=== PATIENT | male | born 1965 | race African-American/Black ===

== ENCOUNTER 2016-09-21 02:41 | Emergency (ER) | payer MEDICARE ==
[~2016-09-21] VITALS: Ht 172.7 cm; Wt 133.8 kg
[~2016-09-21 02:41] MED LIST: TRAZ100T15 PO
[2016-09-21 02:42] VITALS: BP 165/109
[2016-09-21] MEDS ORDERED: ARIP10TA13 PO (02:50)
[2016-09-21] MEDS ORDERED: TRAZ100T15 PO (02:50)
[2016-09-21] MEDS ORDERED: OLAN10TA3 PO (02:51)
[2016-09-21 03:45] LABS: ASPARTATE AMINO TRANSFERASE 38 U/L (15-37); BLOOD UREA NITROGEN 13 mg/dL (7-18)
[2016-09-21 04:02] LABS: ACETAMINOPHEN < 2 mcg/mL (10-30)
== END 2016-09-21 04:43 | disposition home or self-care (01) ==
LOC: ED 04:00
DX: F32.0 Major depressive disorder, single episode, mild (principal); F17.200 Nicotine dependence, unspecified, uncomplicated
CPT/HCPCS: 36415; 80053; 80307; 80329; 85025; 99284; G0480

== ENCOUNTER 2016-11-22 23:00 | Emergency (ER) | payer MEDICARE ==
[~2016-11-22] VITALS: Ht 172.7 cm; Wt 130.0 kg
[~2016-11-22 23:00] MED LIST changes: +ARIP10TA13 PO; +OLAN10TA3 PO
[2016-11-22 23:51] LABS: BLOOD UREA NITROGEN 18 mg/dL (7-18)
[2016-11-22 23:52] LABS: ACETAMINOPHEN < 2 mcg/mL (10-30)
[2016-11-23 00:01] LABS: DIFF TOTAL CELLS COUNTED 100 CELL DIFF
[2016-11-23 00:06] LABS: VERIFY COUNTS? YES
[2016-11-23 00:30] VITALS: BP 151/81
[2016-11-23] MEDS ORDERED: QUETIAPINE 25MG TABLET PO ONE (01:00)
== END 2016-11-23 01:17 | disposition home or self-care (01) ==
LOC: ED 23:59
DX: F32.9 Major depressive disorder, single episode, unspecified (principal); F41.9 Anxiety disorder, unspecified
CPT/HCPCS: 36415; 80048; 80307; 80329; 82040; 85025; 99284; G0480

== ENCOUNTER 2017-01-20 16:30 | Observation (INO) | payer MEDICARE, MEDICAID ==
[~2017-01-20] VITALS: Ht 172.7 cm; Wt 135.0 kg
[~2017-01-20 16:30] MED LIST changes: -ARIP10TA13 PO; +ARIP10TA33 PO
[2017-01-20 17:12] LABS: DAU SCREEN DISCLAIMER
[2017-01-20 17:20] LABS: HEMATOCRIT 38.5 % (39.2-51.8); HEMOGLOBIN 12.7 g/dL (13.7-18.0); WHITE BLOOD COUNT 8.6 x10^3/uL (3.4-10)
[2017-01-20] MEDS ORDERED: LORazepam 1MG TABLET PO ONE (17:30)
[2017-01-20 17:32] LABS: ACETAMINOPHEN < 2 mcg/mL (10-30); ASPARTATE AMINO TRANSFERASE 21 U/L (15-37); BLOOD UREA NITROGEN 16 mg/dL (7-18)
[2017-01-20] MEDS ORDERED: ONDANSETRON ODT 4 MG PO PRN (20:00)
[2017-01-20] MEDS ORDERED: ACETAMINOPHEN 325 MG TABLET PO PRN (20:00)
[2017-01-20] MEDS ORDERED: POLYETHYLENE GLYCOL 17 GM PACKET PO PRN (20:00)
[2017-01-20] MEDS ORDERED: BISACODYL 10 MG SUPP PR PRN (20:00)
[2017-01-21] MEDS: NICOTINE 7 MG/24 HR PATCH.TD24 TD SCH ×2 (00:35→22:30)
[2017-01-21] MEDS: TRAZODONE 100MG TABLET PO SCH ×2 (00:36→22:30)
[2017-01-21] MEDS ORDERED: ZIPRASIDONE 20 MG INJ IM ONE ×2 (06:39→07:00)
[2017-01-21] MEDS: OLANZAPINE 10 MG TABLET PO SCH (13:54)
[2017-01-21] MEDS: ARIPIPRAZOLE 10 MG TABLET PO SCH (13:55)
[2017-01-21] MEDS: SENNA/DOCUSATE TABLET PO SCH (13:55)
[2017-01-21] MEDS ORDERED: HEPARIN 5,000 UNITS/ML, 1ML ONE (22:25)
[2017-01-21] MEDS ORDERED: NICOTINE 14MG/24 HR PATCH.TD24 ONE (22:26)
[2017-01-21] MEDS: HEPARIN 5,000 UNITS/ML, 1ML SQ SCH (22:30)
[2017-01-22] MEDS: SENNA/DOCUSATE TABLET PO SCH (08:49)
[2017-01-22] MEDS: OLANZAPINE 10 MG TABLET PO SCH (08:55)
[2017-01-22] MEDS: ARIPIPRAZOLE 10 MG TABLET PO SCH (08:56)
[2017-01-22] MEDS: HEPARIN 5,000 UNITS/ML, 1ML SQ SCH ×3 (10:30→23:03)
[2017-01-22] MEDS ORDERED: HEPARIN 5,000 UNITS/ML, 1ML ONE (22:54)
[2017-01-22] MEDS: NICOTINE 7 MG/24 HR PATCH.TD24 TD SCH (23:03)
[2017-01-22] MEDS: TRAZODONE 100MG TABLET PO SCH (23:03)
[2017-01-23] MEDS: HEPARIN 5,000 UNITS/ML, 1ML SQ SCH ×3 (02:30→18:31)
[2017-01-23] MEDS ORDERED: HEPARIN 5,000 UNITS/ML, 1ML ONE ×2 (08:47→18:27)
[2017-01-23] MEDS: SENNA/DOCUSATE TABLET PO SCH (09:16)
[2017-01-23] MEDS: ARIPIPRAZOLE 10 MG TABLET PO SCH (09:16)
[2017-01-23] MEDS: OLANZAPINE 10 MG TABLET PO SCH (09:17)
[2017-01-23] MEDS: TRAZODONE 100MG TABLET PO SCH (21:58)
[2017-01-23] MEDS: NICOTINE 7 MG/24 HR PATCH.TD24 TD SCH (22:00)
[2017-01-23] MEDS: GUAIFENESIN/DM 100-10MG, 5ML UDC PO PRN (22:01)
[2017-01-23 22:09] VITALS: BP 126/76
[2017-01-24] MEDS: HEPARIN 5,000 UNITS/ML, 1ML SQ SCH ×3 (05:26→21:05)
[2017-01-24] MEDS: GUAIFENESIN/DM 100-10MG, 5ML UDC PO PRN (05:26)
[2017-01-24 07:23] VITALS: BP 121/86
[2017-01-24] MEDS: ARIPIPRAZOLE 10 MG TABLET PO SCH (07:38)
[2017-01-24] MEDS: OLANZAPINE 10 MG TABLET PO SCH (07:38)
[2017-01-24] MEDS: SENNA/DOCUSATE TABLET PO SCH (07:40)
[2017-01-24 20:30] VITALS: BP 120/74
[2017-01-24] MEDS: NICOTINE 7 MG/24 HR PATCH.TD24 TD SCH (20:53)
[2017-01-24] MEDS: TRAZODONE 100MG TABLET PO SCH (20:53)
[2017-01-24] MEDS ORDERED: HEPARIN 5,000 UNITS/ML, 1ML SQ SCH (22:00)
[2017-01-25] MEDS: HEPARIN 5,000 UNITS/ML, 1ML SQ SCH (06:00)
[2017-01-25 07:00] VITALS: BP 120/82
[2017-01-25] MEDS: ARIPIPRAZOLE 10 MG TABLET PO SCH (07:43)
[2017-01-25] MEDS: OLANZAPINE 10 MG TABLET PO SCH (07:44)
[2017-01-25] MEDS: SENNA/DOCUSATE TABLET PO SCH (07:45)
[2017-01-25] MEDS ORDERED: ENOXAPARIN 40 MG/0.4 ML SQ SCH (18:00)
[2017-01-25 19:20] VITALS: BP 94/56
[2017-01-25 20:52] VITALS: BP 120/72
[2017-01-25] MEDS: TRAZODONE 100MG TABLET PO SCH (20:53)
[2017-01-25] MEDS: NICOTINE 7 MG/24 HR PATCH.TD24 TD SCH (20:53)
[2017-01-26 08:00] VITALS: BP 110/71
[2017-01-26] MEDS: ARIPIPRAZOLE 10 MG TABLET PO SCH (09:05)
[2017-01-26] MEDS: OLANZAPINE 10 MG TABLET PO SCH (09:06)
[2017-01-26] MEDS: SENNA/DOCUSATE TABLET PO SCH (09:11)
[2017-01-26] MEDS: GUAIFENESIN/DM 100-10MG, 5ML UDC PO PRN ×2 (09:21→17:39)
[2017-01-26] MEDS: ENOXAPARIN 40 MG/0.4 ML SQ SCH (17:39)
[2017-01-26 19:48] VITALS: BP 105/71
[2017-01-26] MEDS: NICOTINE 7 MG/24 HR PATCH.TD24 TD SCH (20:38)
[2017-01-26] MEDS: TRAZODONE 100MG TABLET PO SCH (20:38)
[2017-01-27] MEDS: OLANZAPINE 10 MG TABLET PO SCH (08:41)
[2017-01-27] MEDS: ARIPIPRAZOLE 10 MG TABLET PO SCH (08:42)
[2017-01-27 08:52] VITALS: BP 133/95
[2017-01-27] MEDS ORDERED: SENNA/DOCUSATE TABLET PO SCH (09:00)
[2017-01-27] MEDS: ENOXAPARIN 40 MG/0.4 ML SQ SCH (18:08)
[2017-01-27 19:28] VITALS: BP 113/68
[2017-01-27] MEDS: TRAZODONE 100MG TABLET PO SCH (20:50)
[2017-01-27] MEDS: NICOTINE 7 MG/24 HR PATCH.TD24 TD SCH (20:51)
[2017-01-28 08:08] VITALS: BP 111/73
[2017-01-28] MEDS: ARIPIPRAZOLE 10 MG TABLET PO SCH (08:28)
[2017-01-28] MEDS: OLANZAPINE 10 MG TABLET PO SCH (08:29)
[2017-01-28] MEDS: SENNA/DOCUSATE TABLET PO SCH (08:30)
[2017-01-28] MEDS: ENOXAPARIN 40 MG/0.4 ML SQ SCH (18:23)
[2017-01-28 19:02] VITALS: BP 137/80
[2017-01-28] MEDS: TRAZODONE 100MG TABLET PO SCH (20:38)
[2017-01-28] MEDS: NICOTINE 7 MG/24 HR PATCH.TD24 TD SCH (20:39)
[2017-01-29 07:59] VITALS: BP 128/86
[2017-01-29] MEDS: ARIPIPRAZOLE 10 MG TABLET PO SCH (08:33)
[2017-01-29] MEDS: OLANZAPINE 10 MG TABLET PO SCH (08:33)
[2017-01-29] MEDS: SENNA/DOCUSATE TABLET PO SCH (08:41)
[2017-01-29] MEDS: ENOXAPARIN 40 MG/0.4 ML SQ SCH (18:12)
[2017-01-29 19:29] VITALS: BP 149/95
[2017-01-29] MEDS: TRAZODONE 100MG TABLET PO SCH (23:00)
[2017-01-29] MEDS: NICOTINE 7 MG/24 HR PATCH.TD24 TD SCH (23:00)
[2017-01-30] MEDS: TRAZODONE 100MG TABLET PO SCH ×2 (00:42→20:37)
[2017-01-30] MEDS: SENNA/DOCUSATE TABLET PO SCH (09:00)
[2017-01-30] MEDS: OLANZAPINE 10 MG TABLET PO SCH (09:17)
[2017-01-30] MEDS: ARIPIPRAZOLE 10 MG TABLET PO SCH (09:18)
[2017-01-30] MEDS: ENOXAPARIN 40 MG/0.4 ML SQ SCH (17:51)
[2017-01-30 19:41] VITALS: BP 139/84
[2017-01-30] MEDS: NICOTINE 7 MG/24 HR PATCH.TD24 TD SCH (23:00)
[2017-01-31 08:18] VITALS: BP 147/111
[2017-01-31] MEDS: ARIPIPRAZOLE 10 MG TABLET PO SCH (09:17)
[2017-01-31] MEDS: SENNA/DOCUSATE TABLET PO SCH (09:18)
[2017-01-31] MEDS: OLANZAPINE 10 MG TABLET PO SCH (09:18)
[2017-01-31] MEDS: NICOTINE 7 MG/24 HR PATCH.TD24 TD SCH (09:26)
[2017-01-31 09:28] VITALS: BP 133/88
[2017-01-31] MEDS ORDERED: NICO1PAT10 TD (11:48)
== END 2017-01-31 12:56 ==
LOC: ED 16:45 → EDIP 18:46 → INTOOBSV 18:46 → 3E 01-23 21:58
PROVIDERS: ADMIT Internal Medicine; ATTEND Internal Medicine
DX: R45.851 Suicidal ideations (principal); D64.9 Anemia, unspecified; E44.1 Mild protein-calorie malnutrition; E66.01 Morbid (severe) obesity due to excess calories; F14.90 Cocaine use, unspecified, uncomplicated; F33.2 Major depressive disorder, recurrent severe without psychotic features; F41.9 Anxiety disorder, unspecified; F17.210 Nicotine dependence, cigarettes, uncomplicated; Z83.3 Family history of diabetes mellitus; Z91.14 Patient's other noncompliance with medication regimen
CPT/HCPCS: 36415; 71020; 80053; 80307; 80329; 85025; 96372; 99285; G0378; J1644; J1650; J3486; G0479; G0480

== ENCOUNTER 2017-02-06 18:22 | Observation (INO) | payer MEDICARE, MEDICAID ==
[~2017-02-06] VITALS: Ht 172.7 cm; Wt 135.0 kg
[~2017-02-06 18:22] MED LIST changes: +NICO-485 TD
[2017-02-06 19:04] LABS: HEMATOCRIT 37.5 % (39.2-51.8); HEMOGLOBIN 12.7 g/dL (13.7-18.0); WHITE BLOOD COUNT 7.7 x10^3/uL (3.4-10)
[2017-02-06 19:13] LABS: BLOOD UREA NITROGEN 16 mg/dL (7-18)
[2017-02-06 19:17] LABS: ACETAMINOPHEN < 2 mcg/mL (10-30)
[2017-02-06 19:19] LABS: IS PT STATUS REG ER OR PRE ER? YES
[2017-02-06] MEDS ORDERED: ZIPRASIDONE 20MG CAPSULE ONE (21:31)
[2017-02-06] MEDS: ZIPRASIDONE 20MG CAPSULE PO SCH (21:35)
[2017-02-06] MEDS ORDERED: ACETAMINOPHEN 325 MG TABLET PO PRN (22:00)
[2017-02-06] MEDS ORDERED: DOCUSATE 100 MG CAPSULE PO PRN (22:00)
[2017-02-06] MEDS ORDERED: ONDANSETRON ODT 4 MG PO PRN (22:00)
[2017-02-06 22:27] LABS: DAU SCREEN DISCLAIMER
[2017-02-07 00:22] VITALS: BP 154/106
[2017-02-07 07:30] VITALS: BP 118/74
[2017-02-07] MEDS: ZIPRASIDONE 20MG CAPSULE PO SCH (08:29)
[2017-02-07] MEDS ORDERED: OLANZAPINE 10 MG TABLET PO SCH (09:00)
[2017-02-07] MEDS ORDERED: ARIPIPRAZOLE 10 MG TABLET PO SCH (09:00)
[2017-02-07] MEDS: PSEUDOEPHEDRINE 30 MG TABLET PO PRN (18:15)
[2017-02-07 19:41] VITALS: BP 133/85
[2017-02-07] MEDS ORDERED: TRAZODONE 100MG TABLET PO SCH (21:00)
[2017-02-08 08:12] VITALS: BP 130/78
[2017-02-08] MEDS ORDERED: ZIPRASIDONE 20 MG INJ IM PRN (11:00)
[2017-02-08] MEDS ORDERED: ZIPRASIDONE 20MG CAPSULE ONE (11:02)
[2017-02-08] MEDS: ZIPRASIDONE 20MG CAPSULE PO SCH ×2 (11:07→20:10)
[2017-02-08] MEDS: ARIPIPRAZOLE 10 MG TABLET PO SCH (11:07)
[2017-02-08] MEDS ORDERED: BUPR300T49 PO (11:33)
[2017-02-08] MEDS ORDERED: BUSP5TAB2 PO (11:34)
[2017-02-08 19:45] VITALS: BP 134/62
[2017-02-08] MEDS: TRAZODONE 100MG TABLET PO SCH (20:10)
[2017-02-08] MEDS: BUSPIRONE 5 MG TABLET PO SCH (20:11)
[2017-02-09] MEDS: PSEUDOEPHEDRINE 30 MG TABLET PO PRN (02:19)
[2017-02-09 08:00] VITALS: BP 121/71
[2017-02-09] MEDS: BUSPIRONE 5 MG TABLET PO SCH ×2 (08:33→20:34)
[2017-02-09] MEDS: ARIPIPRAZOLE 10 MG TABLET PO SCH (08:33)
[2017-02-09] MEDS: BUPROPION 100 MG TABLET PO SCH (08:34)
[2017-02-09] MEDS: ZIPRASIDONE 20MG CAPSULE PO SCH ×2 (08:34→20:35)
[2017-02-09 19:18] VITALS: BP 110/70
[2017-02-09] MEDS: TRAZODONE 100MG TABLET PO SCH (20:35)
[2017-02-10] MEDS: BUPROPION 100 MG TABLET PO SCH (08:23)
[2017-02-10] MEDS: BUSPIRONE 5 MG TABLET PO SCH ×2 (08:24→20:52)
[2017-02-10] MEDS: ZIPRASIDONE 20MG CAPSULE PO SCH ×2 (08:24→20:52)
[2017-02-10] MEDS: ARIPIPRAZOLE 10 MG TABLET PO SCH (08:24)
[2017-02-10 08:34] VITALS: BP 147/99
[2017-02-10] MEDS ORDERED: DOCUSATE 100 MG CAPSULE PO PRN (20:00)
[2017-02-10] MEDS ORDERED: ZIPRASIDONE 20 MG INJ IM PRN (20:00)
[2017-02-10] MEDS ORDERED: ONDANSETRON ODT 4 MG PO PRN (20:00)
[2017-02-10] MEDS ORDERED: ACETAMINOPHEN 325 MG TABLET PO PRN (20:00)
[2017-02-10 20:35] VITALS: BP 105/67
[2017-02-10] MEDS: TRAZODONE 100MG TABLET PO SCH (20:52)
[2017-02-11] MEDS: ZIPRASIDONE 20MG CAPSULE PO SCH (08:40)
[2017-02-11] MEDS: BUSPIRONE 5 MG TABLET PO SCH (08:40)
[2017-02-11] MEDS: BUPROPION 100 MG TABLET PO SCH (08:40)
[2017-02-11] MEDS: ARIPIPRAZOLE 10 MG TABLET PO SCH (08:40)
[2017-02-11 08:43] VITALS: BP 109/65
== END 2017-02-11 14:56 ==
LOC: ED 18:34 → EDIP 21:10 → INTOOBSV 21:10 → SUATTDRO 21:39 → 3E 02-07 00:20
PROVIDERS: ADMIT Hospitalist; ATTEND Family Medicine
DX: R45.851 Suicidal ideations (principal); F32.9 Major depressive disorder, single episode, unspecified; F41.9 Anxiety disorder, unspecified; E66.01 Morbid (severe) obesity due to excess calories; Z68.42 Body mass index [BMI] 45.0-49.9, adult
CPT/HCPCS: 36415; 80048; 80307; 80329; 82040; 84484; 85025; 93005; 99285; G0378; G0479; G0480

== ENCOUNTER 2018-12-03 03:41 | Emergency (ER) | payer MEDICARE, MEDICAID ==
[~2018-12-03] VITALS: Ht 172.7 cm; Wt 131.0 kg
[~2018-12-03 03:41] MED LIST changes: +BUPR300T49 PO; +BUSP5TAB2 PO; +TRAZ-137 PO; -TRAZ100T15 PO
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
--- NOTE | 2018-12-03 04:24 | NUR ---
pt in hospital gown. one bag belongings labeled and placed in clothing closet. pt given urine cup for specimen collection. room secured with bilat garage doors down. sitter at door.
--- NOTE | 2018-12-03 04:43 | NUR ---
pt refusing labs. erp aware
--- NOTE | 2018-12-03 05:38 | NUR ---
SITTER AT DOOR.
--- NOTE | 2018-12-03 05:38 | NUR ---
PT PROVIDED URINE SAMPLE. URINE WALKED TO LAB. PT GIVEN SOCKS. LAB CALLED PT STATED AGREEABLE TO LABS BEING DRAWN AT THIS TIME.
[2018-12-03 05:59] LABS: AMPHETAMINE SCREEN, URINE Positive (Negative); BARBITURATE SCREEN, URINE Negative (Negative); BENZODIAZEPINE SCREEN, URINE Negative (Negative); CANNABINOID SCREEN, URINE Negative (Negative); COCAINE SCREEN, URINE Negative (Negative); METHADONE SCREEN, URINE Negative (Negative); OPIATE SCREEN, URINE Negative (Negative)
[2018-12-03 06:19] LABS: BASOPHILS # (AUTO) 0.03 x10^3/uL (0-0.1); BASOPHILS % (AUTO) 1 % (0-1); EOSINOPHILS # (AUTO) 0.14 x10^3/uL (0-0.4); EOSINOPHILS % (AUTO) 2 % (1-7); LYMPHOCYTES # (AUTO) 2.84 x10^3/uL (1-3.4); LYMPHOCYTES % (AUTO) 40 % (22-44); MD NO; MEAN CORPUSCULAR HEMOGLOBIN 30.6 pg (27.5-34.5); MEAN CORPUSCULAR HGB CONC 32.7 g/dL (33.2-36.2); MEAN CORPUSCULAR VOLUME 93.6 fL (81-97); MEAN PLATELET VOLUME 7.7 fL (7.4-10.4); MONOCYTES # (AUTO) 0.47 x10^3/uL (0.2-0.8); MONOCYTES % (AUTO) 7 % (2-9); NEUTROPHILS # (AUTO) 3.63 x10^3/uL (1.8-6.8); NEUTROPHILS % (AUTO) 51 % (42-75); PLATELET COUNT 246 x10^3/uL (130-400); RED BLOOD COUNT 4.34 x10^6/uL (4.38-5.82); RED CELL DISTRIBUTION WIDTH 16.1 % (9.4-14.8)
--- NOTE | 2018-12-03 06:22 | NUR ---
TELEPSYCH CONSULT INITIATED. PT DOC BOT PLACED IN PT ROOM #[id number]. BREAKFAST ORDERED FOR PT. LAB ABLE TO DRAW BLOOD.
[2018-12-03 06:23] LABS: ALANINE AMINOTRANSFERASE 34 U/L (12-78); ALBUMIN 3.2 g/dL (3.4-5.0); ANION GAP 8 mmol/L (5-15); CALCIUM 8.2 mg/dL (8.5-10.1); CHLORIDE 112 mmol/L (98-107)
[2018-12-03 06:25] LABS: SALICYLATE LEVEL < 1.7 mg/dL (2.8-20.0)
[2018-12-03 06:26] LABS: ALKALINE PHOSPHATASE 77 U/L (45-117); BILIRUBIN,TOTAL 0.7 mg/dL (0.2-1.0); CREATININE 0.84 mg/dL (0.7-1.3); TOTAL PROTEIN 6.6 g/dL (6.4-8.2)
--- NOTE | 2018-12-03 06:47 | NUR ---
REPORT TO CHER Amanda
--- NOTE | 2018-12-03 07:08 | NUR ---
PT SLEEPING. CARE ASSUMED.
--- NOTE | 2018-12-03 07:22 | NUR ---
REPORT GIVEN TO DR ALY.
--- NOTE | 2018-12-03 07:33 | NUR ---
TELE PSYCH CONSULT IN PROGRESS
--- NOTE | 2018-12-03 08:00 | NUR ---
PT REFUSED TO PROVIDE A URINE SAMPLE. PT GETS AGITATED WHEN TALKED TO.
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
[2018-12-03] MEDS ORDERED: LORazepam 1MG TABLET ONE (08:22)
[2018-12-03] MEDS ORDERED: LORazepam 1MG TABLET PO ONE (08:30)
--- NOTE | 2018-12-03 09:15 | NUR ---
PT REPORTS HE STILL HAS SELF HARM THOUGHTS BUT IS NOT HAVING ANY THOUGHTS OF HARMING OTHERS AT THIS TIME. PT COOPERATIVE AND ALLOWS RN TO TAKE VS. NAD. VSS.
--- NOTE | 2018-12-03 09:45 | NUR ---
PT DENIES ANY NEEDS AT THIS TIME.
[2018-12-03 09:46] VITALS: BP 143/75
--- NOTE | 2018-12-03 09:46 | NUR ---
THROUGHPUT: PACKET FAXED TO [facility], [place], [facility], [facility], [address] [facility].
--- NOTE | 2018-12-03 10:11 | NUR ---
THROUGHPUT: REFUSED BY JUAN PABLO Addendum: 12/03/18 at 1012 by JOHN THROUGHPUT: REFUSED BY JUAN PABLO PER OSEI
--- NOTE | 2018-12-03 10:40 | NUR ---
Patient is resting comfortably in bed. Pt states, "I'm really sleepy, I just want to take a nap". NAD.
[2018-12-03] MEDS ORDERED: FOLIC ACID 1 MG TABLET PO SCH (11:30)
[2018-12-03] MEDS ORDERED: ACETAMINOPHEN 325 MG TABLET PO PRN (11:30)
[2018-12-03] MEDS ORDERED: THIAMINE 100MG TABLET PO SCH (11:30)
[2018-12-03] MEDS ORDERED: ONDANSETRON ODT 4 MG PO PRN (11:30)
[2018-12-03] MEDS ORDERED: MULTIVITAMIN 1 TABLET PO SCH (11:30)
--- NOTE | 2018-12-03 11:50 | NUR ---
PT ASLEEP IN ROOM BUT ROUSES EASILY WHEN SPOKEN TO. PT INFORMED OF PLAN TO TRANSFER TO FLOOR. NAD.
--- NOTE | 2018-12-03 12:15 | NUR ---
CM ROUNDED ON PT
--- NOTE | 2018-12-03 12:21 | NUR ---
REPORT GIVEN TO CARO ON 3E
[2018-12-03] MEDS ORDERED: ENOXAPARIN 40 MG/0.4 ML SQ SCH (12:30)
--- NOTE | 2018-12-03 13:06 | NUR ---
MEDS GIVEN PRIOR TO TRANSFER. PT INFORMED OF POC, PT VERBALIZED UNDERSTANDING. NAD. PT DENIES VS PRIOR TO TRANSFER.
[2018-12-10] MEDS ORDERED: ACAM333T7 PO (14:08)
[2018-12-10] MEDS ORDERED: TRAZ150T62 PO (14:08)
[2018-12-10] MEDS ORDERED: NICO-486 TD (14:08)
[2018-12-10] MEDS ORDERED: MELA5TAB14 PO (14:08)
[2018-12-10] MEDS ORDERED: BUPR150T73 PO (14:08)
[2018-12-10] MEDS ORDERED: ARIP5TAB19 PO (14:08)
[2019-02-02] MEDS ORDERED: BUSP5TAB2 PO (23:22)
== END 2018-12-03 13:05 ==
LOC: ED 05:29 → EDIP 09:14 → UNDOADMIN 09:14 → UNDODISIN 11:27 → ED 13:05
DX: F32.9 Major depressive disorder, single episode, unspecified (principal); R45.850 Homicidal ideations; Z88.9 Allergy status to unspecified drugs, medicaments and biological substances
CPT/HCPCS: 36415; 80053; 80307; 85025; 96372; 99285; J1650

== ENCOUNTER 2018-12-03 10:56 | Inpatient (IN) | payer MEDICARE, MEDICAID ==
[~2018-12-03] VITALS: Ht 172.7 cm; Wt 127.6 kg
[2018-12-10 08:00] VITALS: BP 130/90
== END 2018-12-10 15:12 | disposition home or self-care (01) | DRG 885 ==
LOC: 3E 13:10
PROVIDERS: ADMIT Psychiatry & Neurology Psychosomatic Medicine; ATTEND Psychiatry & Neurology Psychosomatic Medicine
DX: F25.0 Schizoaffective disorder, bipolar type (principal); R45.851 Suicidal ideations; F15.20 Other stimulant dependence, uncomplicated; Z68.41 Body mass index [BMI] 40.0-44.9, adult; R45.850 Homicidal ideations; E66.9 Obesity, unspecified; F10.20 Alcohol dependence, uncomplicated; F17.210 Nicotine dependence, cigarettes, uncomplicated; F60.2 Antisocial personality disorder; G47.00 Insomnia, unspecified; Z59.0 Homelessness; Z66 Do not resuscitate; Z79.899 Other long term (current) drug therapy; Z88.2 Allergy status to sulfonamides
CPT/HCPCS: 36415; 80053; 80061; 80307; 81003; 82140; 82607; 84439; 84443; 85025; 86592; 93005; 96372; J1650

== ENCOUNTER 2019-01-04 21:39 | Emergency (ER) | payer MEDICAID, MEDICARE ==
[~2019-01-04] VITALS: Ht 170.2 cm; Wt 128.3 kg
[2019-01-04 21:42] VITALS: BP 141/88
== END 2019-01-04 22:25 | disposition home or self-care (01) ==
LOC: ED 22:15
DX: M25.561 Pain in right knee (principal); G62.9 Polyneuropathy, unspecified; F32.9 Major depressive disorder, single episode, unspecified
CPT/HCPCS: 73564; 82962; 96372; 99283; J1885

== ENCOUNTER 2019-06-05 19:34 | Emergency (ER) | payer MEDICARE, MEDICAID ==
[~2019-06-05] VITALS: Ht 170.2 cm; Wt 142.8 kg
[~2019-06-05 19:34] MED LIST changes: +ACAM333T7 PO; +ARIP5TAB56 PO; +BENZ1TAB61 PO; +BUPR150T73 PO; +MELA5TAB14 PO; +NICO-486 TD; +PENI250T91 PO; +TRAZ150T62 PO; +ZIPR40CA2 PO
[2019-06-05 19:50] VITALS: BP 149/95
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
--- NOTE | 2019-06-05 20:44 | NUR ---
REPORT GIVEN TO CHASE CORRAL. MOVED TO CORE ROOM FOR SI PRECAUTIONS.
--- NOTE | 2019-06-05 20:51 | NUR ---
REPORT FROM URIEL STONE. PT MOVED TO SECURE ROOM, BELONGINGS LABELED AND 2 BAGS PLACED IN BOTTOM RIGHT OF LOCKER.
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
[2019-06-05] MEDS ORDERED: KETOROLAC 30 MG/1 ML ONE (21:08)
[2019-06-05] MEDS ORDERED: ACETAMINOPHEN 500 MG TABLET ONE (21:08)
[2019-06-05] MEDS ORDERED: LORazepam 1MG TABLET ONE (21:19)
--- NOTE | 2019-06-05 21:20 | NUR ---
PT EDUCATED ON POC, PT NOT WANTING MEDS FOR PAIN PT STS HERE FOR PSYCH HELP.
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
--- NOTE | 2019-06-05 21:24 | NUR ---
PT BECOMING INCREASINGLY MORE AGGRESSIVE WITH STAFF MD AT BEDSIDE, PT VERBALLY AND PHYSICALLY AGGRESSIVE TO MD. SECURITY TO ROOM.
--- NOTE | 2019-06-05 21:26 | NUR ---
PT MEDICATED PER JUL, PT SITTING ON GURNEY, LIGHTS OFF FOR COMFORT.
[2019-06-05] MEDS ORDERED: LORazepam 1MG TABLET PO ONE (21:30)
[2019-06-05] MEDS ORDERED: ACETAMINOPHEN 500 MG TABLET PO ONE (21:30)
[2019-06-05] MEDS ORDERED: KETOROLAC 30 MG/1 ML IM ONE (21:30)
[2019-06-05 22:24] LABS: BASOPHILS # (AUTO) 0.02 x10^3/uL (0-0.1); BASOPHILS % (AUTO) 0 % (0-1); EOSINOPHILS # (AUTO) 0.09 x10^3/uL (0-0.4); EOSINOPHILS % (AUTO) 1 % (1-7); LYMPHOCYTES # (AUTO) 2.12 x10^3/uL (1-3.4); LYMPHOCYTES % (AUTO) 29 % (22-44); MD NO; MEAN CORPUSCULAR HEMOGLOBIN 30.9 pg (27.5-34.5); MEAN CORPUSCULAR HGB CONC 33.2 g/dL (33.2-36.2); MEAN CORPUSCULAR VOLUME 93.2 fL (81-97); MEAN PLATELET VOLUME 7.4 fL (7.4-10.4); MONOCYTES # (AUTO) 0.52 x10^3/uL (0.2-0.8); MONOCYTES % (AUTO) 7 % (2-9); NEUTROPHILS % (AUTO) 63 % (42-75); PLATELET COUNT 238 x10^3/uL (130-400); RED CELL DISTRIBUTION WIDTH 14.5 % (9.4-14.8)
--- NOTE | 2019-06-05 22:34 | NUR ---
PT NOW RESTING ON GURNEY EYES CLOSED, RESP EVEN AND UNLABORED. SITTER REMAINS IN HALLWAY FOR SAFETY AND FREQUENT CHECKS.
[2019-06-05 22:36] LABS: ALBUMIN 3.3 g/dL (3.4-5.0); ANION GAP 8 mmol/L (5-15); CALCIUM 8.5 mg/dL (8.5-10.1); CHLORIDE 109 mmol/L (98-107); CREATININE 1.01 mg/dL (0.7-1.3)
[2019-06-05 22:39] LABS: SALICYLATE LEVEL < 1.7 mg/dL (2.8-20.0)
[2019-06-05 22:56] LABS: AMPHETAMINE SCREEN, URINE Positive (Negative); BARBITURATE SCREEN, URINE Negative (Negative); BENZODIAZEPINE SCREEN, URINE Negative (Negative); CANNABINOID SCREEN, URINE Negative (Negative); COCAINE SCREEN, URINE Negative (Negative); METHADONE SCREEN, URINE Negative (Negative); OPIATE SCREEN, URINE Negative (Negative)
--- NOTE | 2019-06-05 23:55 | NUR ---
PT CONTINUES TO REST CALMLY ON ELISEO ARREGUIN. SITTER IN PLACE FOR ENSURED SAFETY. AWAITING TELE PSYCH
--- NOTE | 2019-06-06 01:29 | NUR ---
REPORT TO SOC
== END 2019-06-06 02:02 | disposition home or self-care (01) ==
LOC: ED 23:51
DX: S80.01XA Contusion of right knee, initial encounter (principal); I10 Essential (primary) hypertension; F17.200 Nicotine dependence, unspecified, uncomplicated; X50.0XXA Overexertion from strenuous movement or load, initial encounter; Y93.89 Activity, other specified; Y92.89 Other specified places as the place of occurrence of the external cause; Y99.8 Other external cause status
CPT/HCPCS: 29505; 36415; 80048; 80307; 82040; 85025; 96372; 99284; J1885

== ENCOUNTER 2019-06-28 20:14 | Emergency (ER) | payer MEDICARE, MEDICAID ==
[~2019-06-28] VITALS: Ht 170.2 cm; Wt 135.9 kg
[~2019-06-28 20:14] MED LIST changes: -TRAZ-137 PO; +TRAZ-175 PO
[2019-06-28 20:31] VITALS: BP 120/91
[2019-06-28] MEDS ORDERED: LIDOCAINE-MPF 1%, 5ML ONE (20:48)
[2019-06-28] MEDS ORDERED: HYDROcodone/APAP 5/325 TABLET ONE (20:58)
[2019-06-28] MEDS ORDERED: HYDROcodone/APAP 5/325 TABLET PO ONE (21:00)
[2019-06-28] MEDS ORDERED: LIDOCAINE-MPF 1%, 5ML INFIL ONE (21:00)
[2019-06-28] MEDS ORDERED: NEOSPORIN OINT. PKT 1 PACKET ONE (21:19)
[2019-06-28] MEDS ORDERED: CLINDAMYCIN 300 MG CAPSULE PO ONE (21:30)
== END 2019-06-28 21:32 | disposition home or self-care (01) ==
LOC: ED 21:00
DX: L03.011 Cellulitis of right finger (principal); M25.561 Pain in right knee; I10 Essential (primary) hypertension
CPT/HCPCS: 10060; 99283

== ENCOUNTER 2020-01-16 02:45 | Emergency (ER) | payer MEDICARE ==
[~2020-01-16] VITALS: Ht 172.7 cm; Wt 138.3 kg
--- NOTE | 2020-01-16 04:50 | NUR ---
PT TO ROOM FROM LOBBY
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
[2020-01-16] MEDS ORDERED: METHOCARBAMOL 750 MG TABLET ONE (05:19)
[2020-01-16] MEDS ORDERED: KETOROLAC 60 MG/2 ML ONE (05:20)
[2020-01-16] MEDS ORDERED: METHOCARBAMOL 750 MG TABLET PO ONE (05:30)
[2020-01-16] MEDS ORDERED: KETOROLAC 30 MG/1 ML IM ONE (05:30)
--- NOTE | 2020-01-16 06:21 | NUR ---
PT ATTEMPTING TO PROVIDE UA AT THIS TIME.
[2020-01-16 06:45] VITALS: BP 169/99
--- NOTE | 2020-01-16 06:58 | NUR ---
REPORT TO CHASE SENIOR.
--- NOTE | 2020-01-16 07:02 | NUR ---
SBAR HAND-OFF REPORT RECEIVED FROM CHASE HENDRIX. ASSUMING CARE OF PATIENT.
[2020-01-16] MEDS ORDERED: HYDROcodone/APAP 5/325 TABLET ONE (07:20)
[2020-01-16] MEDS ORDERED: HYDROcodone/APAP 5/325 TABLET PO ONE (07:30)
[2020-01-16 08:02] LABS: MICROSCOPIC AUTO
== END 2020-01-16 07:47 | disposition left against medical advice (07) ==
LOC: ED 05:25
DX: S30.0XXA Contusion of lower back and pelvis, initial encounter (principal); M54.6 Pain in thoracic spine; I10 Essential (primary) hypertension; W01.0XXA Fall on same level from slipping, tripping and stumbling without subsequent striking against object, initial encounter; Y93.89 Activity, other specified; Y92.89 Other specified places as the place of occurrence of the external cause; Y99.8 Other external cause status
CPT/HCPCS: 72080; 72110; 81001; 87086; 96374; 99284; J1885; 96372

== ENCOUNTER 2020-01-24 07:25 | Emergency (ER) | payer MEDICARE ==
[2020-01-24 07:32] VITALS: BP 149/74
[2020-01-24] MEDS ORDERED: KETOROLAC 30 MG/1 ML ONE (07:57)
[2020-01-24] MEDS ORDERED: DIAZEPAM 5 MG TABLET ONE (07:57)
[2020-01-24] MEDS ORDERED: KETOROLAC 30 MG/1 ML IM ONE (08:00)
[2020-01-24] MEDS ORDERED: DIAZEPAM 5 MG TABLET PO ONE (08:00)
[2020-01-24] MEDS ORDERED: NEOSPORIN OINT. PKT 1 PACKET ONE (09:45)
== END 2020-01-24 09:56 | disposition home or self-care (01) ==
LOC: ED 08:34
DX: M51.36 Other intervertebral disc degeneration, lumbar region (principal); I10 Essential (primary) hypertension
CPT/HCPCS: 96372; 99283; J1885

== ENCOUNTER 2020-02-15 20:08 | Emergency (ER) | payer MEDICARE, MEDICAID ==
[~2020-02-15] VITALS: Ht 170.2 cm; Wt 138.0 kg
[2020-02-15 20:10] VITALS: BP 137/74
[2020-02-15] MEDS ORDERED: DOXYCYCLINE 100MG TABLET PO ONE (21:00)
--- NOTE | 2020-02-15 21:14 | NUR ---
this pt left department prior to assessment by this RN
== END 2020-02-15 21:13 | disposition left against medical advice (07) ==
LOC: ED 20:38
DX: L02.11 Cutaneous abscess of neck (principal); L02.416 Cutaneous abscess of left lower limb; L02.415 Cutaneous abscess of right lower limb; I10 Essential (primary) hypertension; F25.9 Schizoaffective disorder, unspecified
CPT/HCPCS: 99283

== ENCOUNTER 2020-02-28 20:01 | Emergency (ER) | payer MEDICARE, MEDICAID ==
[~2020-02-28] VITALS: Ht 170.2 cm; Wt 137.0 kg
[2020-02-28 20:04] VITALS: BP 132/98
[2020-02-28] MEDS ORDERED: LIDOCAINE-MPF 1%, 5ML INFIL ONE (20:30)
[2020-02-28] MEDS ORDERED: LIDOCAINE-MPF 1%, 5ML ONE (20:33)
== END 2020-02-28 21:34 | disposition home or self-care (01) ==
LOC: ED 20:47
DX: L03.011 Cellulitis of right finger (principal); Z88.2 Allergy status to sulfonamides
CPT/HCPCS: 99283

== ENCOUNTER 2020-03-14 14:10 | Emergency (ER) | payer MEDICARE, MEDICAID ==
[~2020-03-14] VITALS: Ht 172.7 cm; Wt 138.9 kg
[2020-03-14 14:11] VITALS: BP 107/80
--- NOTE | 2020-03-14 14:32 | NUR ---
PT ELOPED. NOT IN ROOM FOR ASSESSMENT. CHARGE NOTIFIED
== END 2020-03-14 14:35 | disposition left against medical advice (07) ==
LOC: ED 14:24
DX: M79.644 Pain in right finger(s) (principal)
CPT/HCPCS: 99283

== ENCOUNTER 2020-03-14 17:51 | Emergency (ER) | payer MEDICARE, MEDICAID ==
[~2020-03-14] VITALS: Ht 170.2 cm; Wt 140.0 kg
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
== END 2020-03-14 18:13 | disposition left against medical advice (07) ==
LOC: ED 18:00
DX: F39 Unspecified mood [affective] disorder (principal); R45.851 Suicidal ideations; M79.644 Pain in right finger(s); I10 Essential (primary) hypertension
CPT/HCPCS: 99284

== ENCOUNTER 2020-04-30 00:38 | Emergency (ER) | payer MEDICARE, MEDICAID ==
[~2020-04-30] VITALS: Ht 172.7 cm; Wt 140.0 kg
[2020-04-30 00:41] VITALS: BP 145/92
== END 2020-04-30 01:08 | disposition home or self-care (01) ==
LOC: ED 00:54
DX: S41.152A Open bite of left upper arm, initial encounter (principal); S41.151A Open bite of right upper arm, initial encounter; L24.9 Irritant contact dermatitis, unspecified cause; L29.9 Pruritus, unspecified; I10 Essential (primary) hypertension; F17.210 Nicotine dependence, cigarettes, uncomplicated; W57.XXXA Bitten or stung by nonvenomous insect and other nonvenomous arthropods, initial encounter; Y93.89 Activity, other specified; Y92.89 Other specified places as the place of occurrence of the external cause; Y99.8 Other external cause status
CPT/HCPCS: 99283

== ENCOUNTER 2020-07-01 22:49 | Emergency (ER) | payer MEDICARE, MEDICAID ==
[~2020-07-01] VITALS: Ht 172.7 cm; Wt 140.0 kg
[2020-07-01] MEDS ORDERED: LIDOCAINE-MPF 1%, 5ML INFIL ONE (23:00)
[2020-07-01] MEDS ORDERED: LIDOCAINE-MPF 1%, 5ML ONE (23:02)
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
[2020-07-01] MEDS ORDERED: DIPH,PERTUSS(ACELL),TET VAC/PF 0.5 ML IM-VACC ONE (23:30)
--- NOTE | 2020-07-01 23:30 | NUR ---
Pts forehead lac, cleaned and lidocaine 1% instilled to numb the area. pt tolerating well, and requiring a lot of interaction and reorientation to the situation to remain calm. 5 sutures placed and edges approximated and closed well. no bleeding and sutures in place, and cleaned the area. pt placed in position of comfort. lights turned down, and call light within reach.
[2020-07-01 23:54] LABS: ALANINE AMINOTRANSFERASE 37 U/L (12-78); ALBUMIN 3.2 g/dL (3.4-5.0); ANION GAP 12 mmol/L (5-15); BASOPHILS % (AUTO) 1 % (0-1); CHLORIDE 113 mmol/L (98-107); EOSINOPHILS % (AUTO) 1 % (1-7); LYMPHOCYTES % (AUTO) 38 % (22-44); MEAN CORPUSCULAR HEMOGLOBIN 30.3 pg (27.5-34.5); MEAN CORPUSCULAR HGB CONC 33.2 g/dL (33.2-36.2); MEAN PLATELET VOLUME 7.6 fL (7.4-10.4); MONOCYTES % (AUTO) 9 % (2-9); NEUTROPHILS % (AUTO) 52 % (42-75); PLATELET COUNT 282 x10^3/uL (130-400); RED BLOOD COUNT 3.82 x10^6/uL (4.38-5.82)
[2020-07-01 23:56] LABS: ALKALINE PHOSPHATASE 103 U/L (45-117); BILIRUBIN,TOTAL 0.3 mg/dL (0.2-1.0); CREATININE 1.13 mg/dL (0.7-1.3); TOTAL PROTEIN 6.7 g/dL (6.4-8.2)
--- NOTE | 2020-07-02 00:02 | NUR ---
pt sleeping on his side, in room, under constant monitoring and camera monitoring. calm at the moment, and cooperative, but still highly agitated and less comments about self harm or harming others.
[2020-07-02 00:04] LABS: MD NO
[2020-07-02] MEDS ORDERED: DIPH,PERTUSS(ACELL),TET VAC/PF 0.5 ML IM-VACC ONE (00:05)
[2020-07-02 00:15] LABS: SALICYLATE LEVEL < 1.7 mg/dL (2.8-20.0)
--- NOTE | 2020-07-02 00:17 | NUR ---
pt remains asleep at this time.
--- NOTE | 2020-07-02 00:38 | NUR ---
pt remains asleep at this time. will awaken and fidget but is resting at this time.
[2020-07-02 00:39] VITALS: BP 165/89
--- NOTE | 2020-07-02 01:51 | NUR ---
pt resting in bed. fidgety and moving around, but remains in bed with siderails up x2. no acute distress. pt is a lot calmer at this time. requesting blankets and provided warm blankets. no bleeding from forehead repaired lac. pt thankful.
--- NOTE | 2020-07-02 02:13 | NUR ---
REPORT FROM ELBERT, TRANSFER OF CARE AT THIS TIME
--- NOTE | 2020-07-02 03:30 | NUR ---
PT RESTING ON GURNEY NADN, RESP EVEN AND UNLABORED, PT OCCASIONALLY TOSSING AND TURNING.
--- NOTE | 2020-07-02 04:37 | NUR ---
pt at sink, redirected back to bed without difficulty now c/o leg/ knee pain erp updated
[2020-07-02] MEDS ORDERED: ACETAMINOPHEN 500 MG TABLET ONE (05:08)
[2020-07-02 05:09] LABS: AMPHETAMINE SCREEN, URINE Positive (Negative); BARBITURATE SCREEN, URINE Negative (Negative); BENZODIAZEPINE SCREEN, URINE Negative (Negative); CANNABINOID SCREEN, URINE Negative (Negative); COCAINE SCREEN, URINE Negative (Negative); METHADONE SCREEN, URINE Negative (Negative); OPIATE SCREEN, URINE Negative (Negative)
[2020-07-02] MEDS ORDERED: ACETAMINOPHEN 500 MG TABLET PO ONE (05:30)
--- NOTE | 2020-07-02 05:50 | NUR ---
Patient/Caregiver given discharge instructions and they have confirmed that they understand the instructions. Patient ambulatory with steady gait.
--- NOTE | 2020-07-02 05:51 | NUR ---
PT REFUSED DC PAPERS UPON DEPARTING
== END 2020-07-02 05:56 | disposition home or self-care (01) ==
LOC: ED 23:55
DX: R45.851 Suicidal ideations (principal); F15.10 Other stimulant abuse, uncomplicated; I10 Essential (primary) hypertension
CPT/HCPCS: 12051; 36415; 80053; 80299; 80307; 80320; 80329; 85025; 90471; 90715; 99284; G0480

== ENCOUNTER 2020-07-11 11:04 | Observation (INO) | payer MEDICARE, MEDICAID ==
[~2020-07-11] VITALS: Ht 175.3 cm; Wt 130.6 kg
--- NOTE | 2020-07-11 11:13 | NUR ---
patient arrives with remsa from home with sob, loss of taste/smell, and coughing up phlegm for 2-3 days. he is aox4, able to ambulate to bed. in bed, on monitor rails up
[2020-07-11 11:36] LABS: BASOPHILS % (AUTO) 1 % (0-1); EOSINOPHILS % (AUTO) 1 % (1-7); LYMPHOCYTES % (AUTO) 30 % (22-44); MD NO; MEAN CORPUSCULAR HEMOGLOBIN 30.6 pg (27.5-34.5); MEAN CORPUSCULAR HGB CONC 33.3 g/dL (33.2-36.2); MEAN PLATELET VOLUME 6.9 fL (7.4-10.4); MONOCYTES % (AUTO) 10 % (2-9); NEUTROPHILS % (AUTO) 58 % (42-75); PLATELET COUNT 248 x10^3/uL (130-400); RED BLOOD COUNT 4.16 x10^6/uL (4.38-5.82); RED CELL DISTRIBUTION WIDTH 14.6 % (9.4-14.8)
[2020-07-11 11:47] LABS: ALANINE AMINOTRANSFERASE 35 U/L (12-78); ALBUMIN 3.2 g/dL (3.4-5.0); ANION GAP 10 mmol/L (5-15); CALCIUM 8.3 mg/dL (8.5-10.1); CHLORIDE 108 mmol/L (98-107)
[2020-07-11 11:52] LABS: ALKALINE PHOSPHATASE 126 U/L (45-117); BILIRUBIN,TOTAL 0.3 mg/dL (0.2-1.0); CREATININE 0.92 mg/dL (0.7-1.3); TOTAL PROTEIN 7.2 g/dL (6.4-8.2)
[2020-07-11 11:58] LABS: TROPONIN I 0.354 ng/mL (0.000-0.045)
[2020-07-11] MEDS ORDERED: ASPIRIN 81 MG TABLET CHEW PO ONE (12:00)
[2020-07-11] MEDS ORDERED: SODIUM CHLORIDE FLUSH 10ML SYR IVF ONE (12:00)
--- NOTE | 2020-07-11 12:04 | NUR ---
IN ROOM WITH MD WHO LET PT KNOW ABOUT TROPES, AND ADMISSION. PATIENT AWARE. ON MONITOR, AOX4. PAIN 5/10 THROAT AND COUGH.
[2020-07-11] MEDS ORDERED: ARIP5TAB13 PO (12:16)
[2020-07-11] MEDS ORDERED: ASPIRIN 81 MG TABLET CHEW ONE (12:41)
[2020-07-11] MEDS: ASPIRIN 325 MG TABLET PO SCH (13:00)
[2020-07-11] MEDS ORDERED: ACETAMINOPHEN 325 MG TABLET PO PRN (13:00)
[2020-07-11] MEDS ORDERED: TEMAZEPAM 15 MG CAPSULE PO PRN (13:00)
[2020-07-11] MEDS ORDERED: ONDANSETRON ODT 4 MG PO PRN (13:00)
--- NOTE | 2020-07-11 13:03 | NUR ---
jocelyne report to Nitish torrse. patient calm, and pain 5.
--- NOTE | 2020-07-11 13:26 | NUR ---
pt left for ct scan
--- NOTE | 2020-07-11 13:53 | NUR ---
got patient a darline
[2020-07-11 14:13] VITALS: BP 167/68
[2020-07-11] MEDS: LORazepam 1MG TABLET PO PRN ×2 (14:40→20:03)
[2020-07-11] MEDS: HEPARIN 5,000 UNITS/ML, 1ML SQ SCH ×2 (14:40→20:07)
[2020-07-11] MEDS: GUAIFENESIN/DM 200-20MG, 10ML UDC PO PRN (14:48)
[2020-07-11 18:08] LABS: TROPONIN I 0.371 ng/mL (0.000-0.045)
[2020-07-11 19:37] VITALS: BP 131/92
[2020-07-11] MEDS: DOXYCYCLINE 100MG CAP PO SCH (20:05)
[2020-07-11] MEDS ORDERED: MELATONIN 5 MG TABLET PO PRN (23:00)
[2020-07-12 00:33] VITALS: BP 144/90
[2020-07-12 00:50] LABS: TROPONIN I 0.347 ng/mL (0.000-0.045)
[2020-07-12] MEDS: HEPARIN 5,000 UNITS/ML, 1ML SQ SCH ×2 (05:39→14:30)
[2020-07-12] MEDS: ASPIRIN 325 MG TABLET PO SCH (05:41)
[2020-07-12] MEDS: GUAIFENESIN/DM 200-20MG, 10ML UDC PO PRN ×2 (06:04→09:45)
[2020-07-12] MEDS: LORazepam 1MG TABLET PO PRN (06:04)
[2020-07-12 07:49] VITALS: BP 139/90
[2020-07-12] MEDS ORDERED: NICOTINE 21 MG/24 HR PATCH.TD24 TD SCH (09:00)
[2020-07-12] MEDS: DOXYCYCLINE 100MG CAP PO SCH (09:41)
[2020-07-12] MEDS ORDERED: GUAI5SYR PO (11:50)
[2020-07-12] MEDS ORDERED: DOXY100C2 PO (11:50)
[2020-07-12 12:49] VITALS: BP 142/89
== END 2020-07-12 14:57 | disposition home or self-care (01) ==
LOC: ED 12:35 → INTOOBSV 12:36 → 4EST 12:36 → ED 12:39
PROVIDERS: ADMIT Internal Medicine; ATTEND Internal Medicine
DX: J40 Bronchitis, not specified as acute or chronic (principal); Z20.822 Contact with and (suspected) exposure to COVID-19; R07.89 Other chest pain; R79.89 Other specified abnormal findings of blood chemistry; R06.00 Dyspnea, unspecified; F25.9 Schizoaffective disorder, unspecified; F17.200 Nicotine dependence, unspecified, uncomplicated; F15.10 Other stimulant abuse, uncomplicated; F10.10 Alcohol abuse, uncomplicated; Z68.41 Body mass index [BMI] 40.0-44.9, adult; Z79.899 Other long term (current) drug therapy; Z59.0 Homelessness
CPT/HCPCS: 36415; 71045; 71275; 80053; 83880; 84484; 85025; 85379; 93005; 93306; 96372; 99285; G0378; J1644; U0003

== ENCOUNTER 2020-08-18 06:53 | Emergency (ER) | payer MEDICAID, MEDICARE ==
[~2020-08-18] VITALS: Ht 170.2 cm; Wt 135.6 kg
[~2020-08-18 06:53] MED LIST changes: +ARIP5TAB13 PO; +DOXY100C2 PO; +GUAI5SYR PO
--- NOTE | 2020-08-18 06:57 | NUR ---
RANGE MASTER NOTE: NO ANSWER WHEN CALLED FROM [facility] X 1
--- NOTE | 2020-08-18 07:05 | NUR ---
GRADE AND CENTER MARKER NOTE: EKG TAKEN IN TRIAGE BY EDT
[2020-08-18] MEDS ORDERED: BENZONATATE 100 MG CAPSULE ONE (07:45)
[2020-08-18] MEDS ORDERED: ALBUTEROL/IPRATROPIUM 2.5MG/0.5MG, 3 ML ONE (07:46)
[2020-08-18] MEDS ORDERED: BENZONATATE 100 MG CAPSULE PO ONE (08:00)
[2020-08-18] MEDS ORDERED: ALBUTEROL SULFATE 2.5 MG/3 ML NPPB ONE (08:00)
[2020-08-18] MEDS ORDERED: ALBUTEROL SULFATE 2.5 MG/3 ML ONE (08:05)
[2020-08-18 08:43] LABS: BASOPHILS % (AUTO) 1 % (0-1); EOSINOPHILS % (AUTO) 1 % (1-7); LYMPHOCYTES % (AUTO) 35 % (22-44); MEAN CORPUSCULAR HEMOGLOBIN 30.8 pg (27.5-34.5); MEAN CORPUSCULAR HGB CONC 32.7 g/dL (33.2-36.2); MEAN PLATELET VOLUME 7.2 fL (7.4-10.4); MONOCYTES % (AUTO) 7 % (2-9); NEUTROPHILS % (AUTO) 57 % (42-75); PLATELET COUNT 248 x10^3/uL (130-400); RED BLOOD COUNT 4.29 x10^6/uL (4.38-5.82); RED CELL DISTRIBUTION WIDTH 15.7 % (9.4-14.8)
[2020-08-18 08:45] LABS: MD NO
[2020-08-18 08:47] LABS: ALBUMIN 3.6 g/dL (3.4-5.0); ANION GAP 6 mmol/L (5-15); CALCIUM 8.3 mg/dL (8.5-10.1); CHLORIDE 106 mmol/L (98-107); CREATININE 1.07 mg/dL (0.7-1.3)
[2020-08-18 09:04] VITALS: BP 176/94
--- NOTE | 2020-08-18 09:04 | NUR ---
PT CALMLY LAYING ON GURNEY WITH EYES CLOSED, NAD/VSS, COMFORT MEASURES PROVIDED, CALL LIGHT WITHIN REACH.
--- NOTE | 2020-08-18 09:39 | NUR ---
Patient given discharge instructions and Rx, they have confirmed that they understand the instructions. Patient ambulatory with steady gait.
== END 2020-08-18 09:40 | disposition home or self-care (01) ==
LOC: ED 07:29
DX: J15.9 Unspecified bacterial pneumonia (principal); R05 Cough; R06.02 Shortness of breath; J02.9 Acute pharyngitis, unspecified; I10 Essential (primary) hypertension; R00.0 Tachycardia, unspecified
CPT/HCPCS: 36415; 71045; 80048; 82040; 83880; 85025; 93005; 94640; 99285; J7613

== ENCOUNTER 2020-11-24 21:21 | Inpatient (IN) | payer MEDICARE, MEDICAID ==
[~2020-11-24] VITALS: Ht 172.7 cm; Wt 131.5 kg
[~2020-11-24 21:21] MED LIST changes: +ASPI81TA45 PO; +ATOR40TA78 PO; +CARV6.2512 PO; +CLOP75TA52 PO; +HYDR12.575 PO; +LISI-167 PO; +NITR0.4T28 SL
[2020-11-24 23:18] LABS: BASOPHILS % (AUTO) 1 % (0-1); EOSINOPHILS % (AUTO) 2 % (1-7); LYMPHOCYTES % (AUTO) 36 % (22-44); MEAN CORPUSCULAR HEMOGLOBIN 31.9 pg (27.5-34.5); MEAN CORPUSCULAR HGB CONC 33.2 g/dL (33.2-36.2); MEAN PLATELET VOLUME 7.4 fL (7.4-10.4); MONOCYTES % (AUTO) 8 % (2-9); NEUTROPHILS % (AUTO) 53 % (42-75); PLATELET COUNT 227 x10^3/uL (130-400); RED BLOOD COUNT 4.12 x10^6/uL (4.38-5.82); RED CELL DISTRIBUTION WIDTH 15.6 % (9.4-14.8)
[2020-11-24 23:29] LABS: ALBUMIN 3.1 g/dL (3.4-5.0); ANION GAP 7 mmol/L (5-15); CALCIUM 8.2 mg/dL (8.5-10.1); CHLORIDE 111 mmol/L (98-107)
[2020-11-24 23:35] LABS: ALANINE AMINOTRANSFERASE 48 U/L (12-78); ALKALINE PHOSPHATASE 110 U/L (45-117); BILIRUBIN,TOTAL 0.3 mg/dL (0.2-1.0); CREATININE 1.01 mg/dL (0.7-1.3); TOTAL PROTEIN 7.1 g/dL (6.4-8.2)
[2020-11-24 23:47] LABS: TROPONIN I 0.608 ng/mL (0.000-0.045)
[2020-11-25] MEDS ORDERED: ASPIRIN 81 MG TABLET CHEW PO ONE
[2020-11-25] MEDS ORDERED: LORazepam 2 MG/ML, 1ML IVPush ONE
[2020-11-25] MEDS ORDERED: FUROSEMIDE 40 MG/4 ML IV ONE
[2020-11-25] MEDS ORDERED: FUROSEMIDE 40 MG/4 ML ONE (00:01)
[2020-11-25] MEDS ORDERED: ASPIRIN 81 MG TABLET CHEW ONE (00:01)
[2020-11-25] MEDS ORDERED: LORazepam 2 MG/ML, 1ML ONE (00:02)
--- NOTE | 2020-11-25 00:10 | NUR ---
0000: First contact with patient in room 40, placed on tele, cr monitor, IV started. Urinal at bedside, medicated per order. NSR no ectopy 166/97.
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
--- NOTE | 2020-11-25 00:40 | NUR ---
Pt states he hasnt had any alcohol in few months, last meth tonight. Pt reports he is not taking any of his medications hes supposed to be taking including his psych medications. Hes very sleepy says hes been up for long time and just wants the lights off and to be left alone. Med rec updated.
[2020-11-25 01:18] VITALS: BP 166/96
[2020-11-25] MEDS ORDERED: DOCUSATE 100 MG CAPSULE PO PRN (02:00)
[2020-11-25] MEDS ORDERED: NITROGLYCERIN 0.4 MG BOTTLE (25 TABS) SL PRN (02:00)
[2020-11-25] MEDS ORDERED: ONDANSETRON ODT 4 MG PO PRN (02:00)
[2020-11-25] MEDS ORDERED: ENALAPRILAT 1.25 MG/ML, 2ML IVPush PRN (02:00)
[2020-11-25] MEDS: TEMAZEPAM 15 MG CAPSULE PO PRN ×2 (05:12→20:32)
[2020-11-25 06:07] LABS: TROPONIN I 0.647 ng/mL (0.000-0.045)
[2020-11-25 07:30] VITALS: BP 136/82
[2020-11-25] MEDS ORDERED: ALBUTEROL SULFATE 2.5 MG/3 ML NPPB ONE (10:30)
[2020-11-25] MEDS ORDERED: ZIPRASIDONE 20 MG INJ IM PRN (11:00)
[2020-11-25 13:52] VITALS: BP 122/88
[2020-11-25] MEDS ORDERED: OLANZAPINE 10 MG INJ IM PRN (15:00)
[2020-11-25] MEDS ORDERED: GUAIFENESIN 100 MG/5 ML, 10ML UDC ONE (15:18)
[2020-11-25] MEDS: METOPROLOL TARTRATE 25 MG TAB PO SCH ×2 (15:23→18:39)
[2020-11-25] MEDS: CLOPIDOGREL 75 MG TABLET PO SCH (15:23)
[2020-11-25] MEDS: LOSARTAN 25MG TABLET PO SCH (15:23)
[2020-11-25] MEDS ORDERED: ALBUTEROL SULFATE 2.5 MG/3 ML HHN PRN (15:30)
[2020-11-25] MEDS: GUAIFENESIN/DM 200-20MG, 10ML UDC PO PRN (18:39)
[2020-11-25 19:25] VITALS: BP 130/82
[2020-11-25] MEDS: ARIPIPRAZOLE 10 MG TABLET PO SCH (20:29)
[2020-11-25] MEDS: ATORVASTATIN 40 MG TABLET PO SCH (20:29)
[2020-11-26 01:32] VITALS: BP 138/79
[2020-11-26] MEDS ORDERED: ASPIRIN 325 MG TABLET EC PO SCH (06:00)
[2020-11-26] MEDS: METOPROLOL TARTRATE 25 MG TAB PO SCH ×2 (06:15→17:50)
[2020-11-26 06:35] VITALS: BP 153/96
[2020-11-26] MEDS ORDERED: ENOXAPARIN 40 MG/0.4 ML SQ SCH (07:00)
[2020-11-26] MEDS: CLOPIDOGREL 75 MG TABLET PO SCH (09:24)
[2020-11-26] MEDS: LOSARTAN 25MG TABLET PO SCH (09:25)
[2020-11-26] MEDS: FUROSEMIDE 20 MG/2 ML IV SCH (09:25)
[2020-11-26] MEDS: GUAIFENESIN/DM 200-20MG, 10ML UDC PO PRN ×2 (10:11→17:56)
[2020-11-26 12:43] VITALS: BP 159/112
[2020-11-26 12:46] LABS: BASOPHILS % (AUTO) 1 % (0-1); EOSINOPHILS % (AUTO) 1 % (1-7); LYMPHOCYTES % (AUTO) 32 % (22-44); MEAN CORPUSCULAR HEMOGLOBIN 31.9 pg (27.5-34.5); MEAN CORPUSCULAR HGB CONC 33.6 g/dL (33.2-36.2); MEAN PLATELET VOLUME 7.4 fL (7.4-10.4); MONOCYTES % (AUTO) 7 % (2-9); NEUTROPHILS % (AUTO) 59 % (42-75); PLATELET COUNT 246 x10^3/uL (130-400); RED BLOOD COUNT 4.77 x10^6/uL (4.38-5.82); RED CELL DISTRIBUTION WIDTH 15.4 % (9.4-14.8)
[2020-11-26 12:54] LABS: ANION GAP 5 mmol/L (5-15); CALCIUM 9.1 mg/dL (8.5-10.1); CHLORIDE 105 mmol/L (98-107); CREATININE 0.93 mg/dL (0.7-1.3)
[2020-11-26 12:58] LABS: TROPONIN I 0.594 ng/mL (0.000-0.045)
[2020-11-26 14:30] VITALS: BP 130/85
[2020-11-26] MEDS: ENOXAPARIN 40 MG/0.4 ML SQ SCH (20:41)
[2020-11-26] MEDS: ARIPIPRAZOLE 10 MG TABLET PO SCH (20:41)
[2020-11-26] MEDS: TEMAZEPAM 15 MG CAPSULE PO PRN (20:41)
[2020-11-26] MEDS: ATORVASTATIN 40 MG TABLET PO SCH (20:41)
[2020-11-27] MEDS: GUAIFENESIN/DM 200-20MG, 10ML UDC PO PRN ×2 (04:34→14:03)
[2020-11-27] MEDS: METOPROLOL TARTRATE 25 MG TAB PO SCH ×3 (05:21→20:29)
[2020-11-27] MEDS: ASPIRIN 81 MG TABLET EC PO SCH ×2 (05:21→05:48)
[2020-11-27] MEDS: CLOPIDOGREL 75 MG TABLET PO SCH (07:40)
[2020-11-27] MEDS: ENOXAPARIN 40 MG/0.4 ML SQ SCH ×2 (07:40→20:30)
[2020-11-27] MEDS: LOSARTAN 25MG TABLET PO SCH (07:40)
[2020-11-27] MEDS: ISOSORBIDE MONONITRATE ER 30 MG TABLET PO SCH (07:40)
[2020-11-27] MEDS: FUROSEMIDE 20 MG/2 ML IV SCH (07:41)
[2020-11-27 07:56] LABS: BASOPHILS % (AUTO) 1 % (0-1); EOSINOPHILS % (AUTO) 1 % (1-7); LYMPHOCYTES % (AUTO) 40 % (22-44); MEAN CORPUSCULAR HEMOGLOBIN 32.2 pg (27.5-34.5); MEAN CORPUSCULAR HGB CONC 33.9 g/dL (33.2-36.2); MEAN PLATELET VOLUME 7.2 fL (7.4-10.4); MONOCYTES % (AUTO) 8 % (2-9); NEUTROPHILS % (AUTO) 50 % (42-75); PLATELET COUNT 246 x10^3/uL (130-400); RED BLOOD COUNT 4.85 x10^6/uL (4.38-5.82); RED CELL DISTRIBUTION WIDTH 15.2 % (9.4-14.8)
[2020-11-27 08:05] VITALS: BP 132/78
[2020-11-27 08:07] LABS: ANION GAP 5 mmol/L (5-15); CALCIUM 8.7 mg/dL (8.5-10.1); CHLORIDE 106 mmol/L (98-107); CREATININE 0.95 mg/dL (0.7-1.3)
[2020-11-27] MEDS ORDERED: ACETAMINOPHEN 325 MG TABLET ONE (14:02)
[2020-11-27 14:09] VITALS: BP 128/72
[2020-11-27] MEDS ORDERED: ACETAMINOPHEN 325 MG TABLET PO PRN (14:30)
[2020-11-27 20:24] VITALS: BP 103/62
[2020-11-27] MEDS: TEMAZEPAM 15 MG CAPSULE PO PRN (20:29)
[2020-11-27] MEDS: ARIPIPRAZOLE 10 MG TABLET PO SCH (20:29)
[2020-11-27] MEDS: ATORVASTATIN 40 MG TABLET PO SCH (20:29)
[2020-11-27] MEDS ORDERED: ALBUTEROL SULFATE 2.5 MG/3 ML ONE (20:33)
[2020-11-27] MEDS ORDERED: ALBUTEROL SULFATE 2.5 MG/3 ML NPPB PRN (22:00)
[2020-11-28] MEDS: ASPIRIN 81 MG TABLET EC PO SCH (06:11)
[2020-11-28] MEDS: METOPROLOL TARTRATE 25 MG TAB PO SCH (06:11)
[2020-11-28 08:23] VITALS: BP 117/83
[2020-11-28] MEDS ORDERED: ISOS30TA8 PO (08:38)
[2020-11-28] MEDS ORDERED: LOSA25TA25 PO (08:38)
[2020-11-28] MEDS ORDERED: ASPI81TA45 PO (08:38)
[2020-11-28] MEDS ORDERED: NITR0.4T28 SL ×2 (08:38)
[2020-11-28] MEDS ORDERED: CLOP75TA52 PO (08:38)
[2020-11-28] MEDS ORDERED: METO25TA35 PO (08:38)
[2020-11-28] MEDS ORDERED: ATOR40TA78 PO (08:38)
[2020-11-28] MEDS ORDERED: FURO20TA3 PO (08:38)
[2020-11-28] MEDS ORDERED: ARIP10TA33 PO (08:38)
[2020-11-28] MEDS: CLOPIDOGREL 75 MG TABLET PO SCH (08:44)
[2020-11-28] MEDS: LOSARTAN 25MG TABLET PO SCH (08:44)
[2020-11-28] MEDS: ENOXAPARIN 40 MG/0.4 ML SQ SCH (08:45)
[2020-11-28] MEDS: ISOSORBIDE MONONITRATE ER 30 MG TABLET PO SCH (08:45)
[2020-11-28] MEDS ORDERED: FUROSEMIDE 20 MG TABLET PO SCH (09:00)
== END 2020-11-28 10:45 | disposition home or self-care (01) | DRG 917 ==
LOC: ED 11-25 00:31 → EDIP 11-25 01:05 → 5SO 11-25 01:10
PROVIDERS: ADMIT Internal Medicine; ATTEND Internal Medicine
DX: T43.621A Poisoning by amphetamines, accidental (unintentional), initial encounter (principal); I21.A1 Myocardial infarction type 2; I50.33 Acute on chronic diastolic (congestive) heart failure; F15.20 Other stimulant dependence, uncomplicated; I42.7 Cardiomyopathy due to drug and external agent; I11.0 Hypertensive heart disease with heart failure; E10.9 Type 1 diabetes mellitus without complications; E78.5 Hyperlipidemia, unspecified; I25.10 Atherosclerotic heart disease of native coronary artery without angina pectoris; I25.5 Ischemic cardiomyopathy; F25.0 Schizoaffective disorder, bipolar type; F17.210 Nicotine dependence, cigarettes, uncomplicated; Z79.4 Long term (current) use of insulin; Z91.14 Patient's other noncompliance with medication regimen; Z91.19 Patient's noncompliance with other medical treatment and regimen; Z59.0 Homelessness; Z88.2 Allergy status to sulfonamides
CPT/HCPCS: 36415; 71045; 80048; 80053; 83735; 83880; 84100; 84484; 85025; 93005; 93308; 93321; 93325; 94640; 99285; G0378; J1650; J1940; J7613; J2060; Q0177

== ENCOUNTER 2021-01-15 14:44 | Emergency (ER) | payer MEDICARE, MEDICAID ==
[~2021-01-15] VITALS: Ht 172.7 cm; Wt 137.0 kg
[~2021-01-15 14:44] MED LIST changes: -DOXY100C2 PO; +DOXY100C5 PO; +FURO20TA3 PO; +ISOS30TA8 PO; +LOSA25TA25 PO; +METO25TA35 PO
[2021-01-15 14:59] VITALS: BP 148/124
[2021-01-15 15:55] LABS: BASOPHILS % (AUTO) 1 % (0-1); EOSINOPHILS % (AUTO) 0 % (1-7); LYMPHOCYTES % (AUTO) 40 % (22-44); MEAN CORPUSCULAR HEMOGLOBIN 32.2 pg (27.5-34.5); MEAN CORPUSCULAR HGB CONC 32.9 g/dL (33.2-36.2); MEAN PLATELET VOLUME 6.7 fL (7.4-10.4); MONOCYTES % (AUTO) 10 % (2-9); NEUTROPHILS % (AUTO) 49 % (42-75); PLATELET COUNT 221 x10^3/uL (130-400); RED BLOOD COUNT 4.12 x10^6/uL (4.38-5.82); RED CELL DISTRIBUTION WIDTH 16.7 % (9.4-14.8)
[2021-01-15] MEDS ORDERED: COVID-19 VAC,AD26(JANSSEN)/PF 0.5ML IM-VACC ONE (17:30)
== END 2021-01-15 18:44 | disposition home or self-care (01) ==
LOC: ED 15:00
DX: L03.011 Cellulitis of right finger (principal); I10 Essential (primary) hypertension; Z23 Encounter for immunization
CPT/HCPCS: 0031A; 10060; 36415; 73130; 85025; 91303; 99284; 0011A

== ENCOUNTER 2021-02-07 15:32 | Emergency (ER) | payer MEDICARE, MEDICAID ==
[~2021-02-07] VITALS: Ht 172.7 cm; Wt 141.0 kg
[2021-02-07 15:46] VITALS: BP 138/96
--- NOTE | 2021-02-07 18:24 | NUR ---
PT WHEELED TO TRAIGE FOR NEW SET OF VITALS. PT BECOMING IRRATE C STAFF ABOUT THE WAIT. ATTEMPTING TO EXPLAIN THE DELAY. PT CONTINUES TO SHOUT AT STAFF, WHEELED TO PHONE TO CALL FOR RIDE. REQUESTED PT TO SIGN AMA FORM. PT REFUSING, CONTINUES TO SHOUT. GOT UP AND WALKED OUT OF ER..ALARMING DOOR AT REGISTRATION.
== END 2021-02-07 18:29 | disposition left against medical advice (07) ==
LOC: ED 15:37
DX: R60.0 Localized edema (principal)
CPT/HCPCS: 71045; 93005; 93970; 99285